=== PATIENT | female | born 1985 ===

== ENCOUNTER 2024-09-04 12:24 | Outpatient (CLI) | payer OTHER, SELFPAY | END 2024-09-04 12:25 | disposition home or self-care (01) | LOC: NFLDREF 09-10 05:23 | PROVIDERS: Visit Provider Physician Assistant Medical | DX: N39.0 Urinary tract infection, site not specified (principal) | CPT/HCPCS: 87086 ==

== ENCOUNTER 2024-12-25 14:23 | Outpatient (CLI) | payer OTHER, SELFPAY | END 2024-12-25 14:24 | disposition home or self-care (01) | LOC: LKVREF 14:24 | PROVIDERS: Visit Provider Physician Assistant | DX: Z13.29 Encounter for screening for other suspected endocrine disorder (principal); R53.83 Other fatigue | CPT/HCPCS: 84443 ==